=== PATIENT | female | born 1990 | race Caucasian/White ===

== ENCOUNTER 2022-09-09 11:29 | Emergency (ER) | payer OTHER, SELFPAY ==
--- NOTE | ~2022-09-09 | XR_ITS ---
EXAMINATION: XR CHEST CLINICAL INFORMATION: Cough and wheezing. COMPARISON: None TECHNIQUE: 2 views of the chest were obtained. FINDINGS: No significant abnormality is noted involving the heart, lungs, mediastinum, bony thorax or soft tissues. XR/XR chest 2V IMPRESSION: No acute cardiopulmonary process.
--- NOTE | ~2022-09-09 | XR_ITS ---
EXAMINATION: XR ANKLE, LEFT CLINICAL INFORMATION: Left ankle pain and swelling. COMPARISON: None TECHNIQUE: AP, lateral, and mortise views of the left ankle. FINDINGS: Mild soft tissue swelling is seen more pronounced laterally. There is no acute fracture, dislocation or joint effusion. The tarsal bones are normally aligned. XR/XR ankle LT min 3V IMPRESSION: Mild soft tissue swelling without acute underlying osseous abnormality.
--- NOTE | ~2022-09-09 | XR_ITS ---
EXAMINATION: XR FOOT, LEFT CLINICAL INFORMATION: Left foot pain. COMPARISON: None TECHNIQUE: AP, lateral, and oblique views of the left foot. FINDINGS: The bones and soft tissues are normal. No fracture. Alignment is anatomic. Joint spaces are maintained. XR/XR foot LT min 3V IMPRESSION: Unremarkable left foot.
[2022-09-09 12:04] VITALS: BP 146/87; PULSE 102; RESP 20; TEMP 36.5; O2SAT 97; BMI 31.1
[2022-09-09 13:33] VITALS: PULSE 84; RESP 18; O2SAT 96
[2022-09-09] MEDS: HYDROcodone/Homat 5/1.5/5 ML 5 ML SYRUP PO (13:45)
[2022-09-09] MEDS: Benzonatate 100 MG CAPSULE PO (13:46)
--- NOTE | 2022-09-09 14:23 | ED.URI ---
HPI - URI/Sore Throat General Chief Complaint: Upper Respiratory Symptoms Stated Complaint: Cough/L ankle inj Time Seen by Provider: 09/09/22 12:19 Source: patient Mode of arrival: ambulatory History of Present Illness HPI Narrative: 32-year-old female with no significant past medical history presents to the ED complaining of productive cough, SOB, wheezing x3 weeks. Also reports left ankle pain and swelling s/p mechanical trip and fall twisting ankle yesterday. Denies head trauma or LOC. Has been ambulatory with pain. Reports chest discomfort with cough for id denies fever, chills, sore throat, ear pain, symptoms prior to fall, travel, sick contacts MD elicited complaint: sore throat and nasal congestion Related Data Allergies Allergy/AdvReac Type Severity Reaction Status Date / Time No Known Allergies Allergy Verified 09/09/22 12:05 Review of Systems Review of Systems: Constitutional: No Fever, No Chills ENT/Mouth: No Ear Pain, No Nasal Congestion, No sore throat, No Rhinorrhea, No Swallowing Difficulty Cardiovascular: No Chest Pain, + SOB Respiratory: +Cough, No Sputum, +Wheezing Gastrointestinal: No Nausea, No Vomiting, No Diarrhea, No Constipation, No Abdominal pain Genitourinary: No Dysuria, No Hematuria, No Urinary Incontinence/retention Musculoskeletal: + joint pain, No Myalgias, + Joint Swelling Skin: No Skin Lesions, No rash Neuro: No Weakness, No Numbness, No Paresthesias Yes all other systems are reviewed and are negative Constitutional: Constitutional: Reports as per [facility] Past Medical History Attestation statement: The following information was validated with the patient. Social History Social History Advance Directives: No Advance Directives Information Provided: Yes Physical Exam Vital Signs: Vital Signs: Last Vital Signs Temp 97.7 F 09/09/22 12:04 Pulse 82 09/09/22 14:42 Resp 18 09/09/22 14:42 BP 146/87 H 09/09/22 12:04 Pulse Ox 97 09/09/22 12:04 O2 Del Method 09/09/22 12:04 BMI result Body Mass Index 31.1 Const: General: cooperative, healthy appearing and no acute distress Orientation/consciousness: patient oriented x3 Limitations: no limitations HEENT: Head: Yes normal to inspection and Yes atraumatic Ears: hearing grossly normal bilaterally General nose exam: Normal external nose present Face and sinus: Yes normal facial exam Eyes: General: appearance normal, both eyes and all related structures EOM: EOMs intact bilaterally Neck: Neck: Yes normal visual inspection and Yes no meningeal signs Resp: Effort & Inspection: normal respiratory effort and no respiratory distress Auscultation: wheezes expiratory wheezes and throughout Cardio: Rate: regular rate Heart sounds: S1 normal heart sound present and S2 normal heart sound present Skin: Rashes: no rashes Wounds: no wounds Neuro: General: patient oriented x3, tone normal and no meningeal signs Gait exam (Neuro): Normal gait present Extrem: Other: Left ankle and proximal foot with noted swelling and tenderness to palpation. Decreased ROM secondary to pain. NV intact. Proximal tib/fib/knee nontender Course Course Course Narrative: XR foot LT min 3V IMPRESSION: Unremarkable left foot. XR ankle LT min 3V IMPRESSION: Mild soft tissue swelling without acute underlying osseous abnormality. >> patient placed in [employer] and supplied with crutches XR chest 2V IMPRESSION: No acute cardiopulmonary process. -1420--on re-evaluation patient is still with diffuse expiratory wheeze/coarse lung sounds will order additional DuoNeb and p.o. prednisone -1533--on re-evaluation patient reports symptomatic improvement. Lungs with good air movement, slight residual end-expiratory wheeze, improved from earlier, patient is safe for discharge at this time. Results discussed with patient including worrisome signs and symptoms and strict return precautions, and when to return to the emergency department. They verbalized understanding and feel safe for discharge at this time. Medications Administered Discontinued Medications Generic Name Dose Route Start Last Admin Trade Name Freq PRN Reason Stop Dose Admin Benzonatate 100 mg 09/09/22 12:34 09/09/22 13:46 Benzonatate 100 Mg Capsule PO 09/09/22 12:35 100 mg ONCE ONE Administration Albuterol Sulfate 2.5 mg/ 0 mg 09/09/22 12:34 09/09/22 13:31 Ipratropium Willcox 0.5 mg INHALE 09/09/22 12:35 1 each ONCE ONE Administration Albuterol Sulfate 5 mg/ 0 mg 09/09/22 14:21 09/09/22 14:39 Ipratropium Willcox 0.5 mg INHALE 09/09/22 14:22 1 each ONCE ONE Administration Hydrocodone Bit/Homatropine Methylb 5 ml 09/09/22 12:34 09/09/22 13:45 Hydrocodone/Homat 5/1.5/5 Ml 5 Ml Syrup PO 09/09/22 12:35 5 ml ONCE ONE Administration Naproxen 500 mg 09/09/22 15:03 09/09/22 15:15 Naproxen 500 Mg Tablet PO 09/09/22 15:04 500 mg ONCE ONE Administration Prednisone 40 mg 09/09/22 14:21 09/09/22 14:36 Prednisone 20 Mg Tablet PO 09/09/22 14:22 40 mg ONCE ONE Administration Medical Decision Making Medical Decision Making [facility] Narrative: 32-year-old female with no significant past medical history presents to the ED complaining of productive cough, SOB, wheezing x3 weeks. Also reports left ankle pain and swelling s/p mechanical trip and fall twisting ankle yesterday. On exam tachycardic likely from active cough, lungs with diffuse expiratory wheeze, ankle with noted swelling and tenderness as above. Concern for viral illness vs bronchitis vs pneumonia. Concern for ankle fracture versus sprain. Lower suspicion for ACS/PE or septic joint Plan: CXR, COVID 19/influenza/RSV testing, ImtiazoNeb, [place], Sandra Morales, reassess Please refer to course for remaining clinical decision making, interpretation of labs/imaging results, and discussions with consultants and/or family members. Differential Diagnosis Differential Diagnoses: The differential diagnosis associated with the presentation includes As above Lab Data MDM Lab Attestation statement: I reviewed the patient's lab results. Radiology Impression Discussion of test interpretation with radiology: I have reviewed the radiologist's reading. Prescription Management I considered prescription management with: Pain Medication, Antiviral and Antibiotic Discharge Plan Discharge Clinical Impression: Bronchitis, Ankle sprain Patient Disposition: Home, Self-Care Instructions: Ankle Sprain (ED), Acute Bronchitis (ED) Referrals: Physician,Unknown J [Primary Care Provider] - 3 days
[2022-09-09] MEDS: predniSONE 20 MG TABLET 40 MG PO (14:36)
[2022-09-09 14:42] VITALS: PULSE 82; RESP 18; O2SAT 97
[2022-09-09] MEDS: NaPROXEN 500 MG TABLET PO (15:15)
[2022-09-09 15:49] LABS: COVID-19 Test Negative (Negative); IDNOW Serial# 16C4AD1C; IDNOW Serial# BCCEAD1C; Influenza A Negative (Negative); Influenza B2 Negative (Negative)
[2022-09-09 15:53] VITALS: BP 116/73; PULSE 106; RESP 20; TEMP 36.4; O2SAT 96
== END 2022-09-09 15:57 | disposition home or self-care (01) ==
PROVIDERS: Physician Assistant; Emergency Provider Emergency Medicine
DX: J40 Bronchitis, not specified as acute or chronic (principal); S93.402A Sprain of unspecified ligament of left ankle, initial encounter; X50.1XXA Overexertion from prolonged static or awkward postures, initial encounter; R00.0 Tachycardia, unspecified; Z20.822 Contact with and (suspected) exposure to COVID-19; Y93.9 Activity, unspecified; Y92.9 Unspecified place or not applicable; Y99.9 Unspecified external cause status
CPT/HCPCS: 71046; 73610; 73630; 87502; 87635; 94640; 99284